=== PATIENT | male | born 1995 | race Caucasian/White ===

== ENCOUNTER 2025-03-30 09:52 | Outpatient (OUT) | payer BC, SELFPAY ==
--- OUTSIDE RECORDS SUMMARY | 2025-03-30 05:31 | XMS_ITS | Continuity of Care Document ---
Author Organization [facility] Address [address] [place] [address] Phone Care Team Providers Care Lacing Presser Name Role Phone Pao Morgan APRN Primary Care Provider Pao Morgan APRN Attending Provider Care Teams Patient Care Team Team Status: Active Member Role/Relationship Status Dates Pao Morgan APRN VITAMIN MANAGER-C Primary Care Provider Active Patient Care Team Team Status: Inactive Member Role/Relationship Status Dates Pao Morgan APRN VITAMIN MANAGER-C Primary Care Provider Active Start: March End: March 30, 2025Pao Morgan APRN VITAMIN MANAGER-CAttending ProviderActive Start: March 30, 2025 End: March 30, 2025 Chief Complaint and Reason for Visit Chief Complaint Admit Date Est Care March 30, 2025 8 :49am Reason for Visit Admit Date Screening for lipid disorders March 302024 8:49am Screening for metabolic disorder March 30, 2025 8:49am Screening, deficiency anemia, iron Octob er 2024 8:49am Wellness examination March 30, 2025 8:49am Allergies, Adverse Reactions, Alerts Allergen Type Severity Reaction Last Updated Verified Status Penicillins Allergy Severe Anaphylaxis March 30, 2025 9:03a m Yes Active Social History Smoking Status Unknown if ever smoked Observation Status Observation Response Date of Response Legal Sex [facility] (finding) [facility] Active Problems Problem Diagnosis/Recorded Date Onset Date Stat Screening, deficiency anemia, iron March 30, 2025 9:25am Unknown Active Wellness examination March 30, 2025 9:21am Unknown Active Screening for metabolic disorder March 30, 2025 9: 25am Unknown Active Screening for lipid disorders March 30, 2025 9:25a m Unknown Active Medications No known medications Vital Signs Vital Reading Result Reference Range Collection Date/Time Height 70 [in_i] March 30, 2025 9:34tqDnoidg822.21 [facility] 9:00amBody Uvshqmyigng42.2 [degF]97.6-99.0[facility] 2024 9:00amHeart Rate78 /tlm92-948 March 30, 2025 9:00amOxygen saturation by Pulse dqserrcg75 %95-100[facility] 2024 9:00amBP Bttooqjv271 mm[Hg]100-140[facility] 2024 9:00amBP Hktzmbwxd72 mm[Hg]60-100[facility] 2024 9:00amBMI (Body Mass Index)50.3 kg/m2 March 30, 2025 9:00am Advance Directives Advance Directive Response Recorded Date/ Time Advance Directives No October 06, 2018 2:07pm Insurance Providers Guarantor Javier Mukherjee [employer] Address [address] [place], [place] [address]Contact Info.Home Phone: Coverage Status Update:2025 Payer Group Member ID Coverage Type Subscriber Relationship to Subscriber Effective Date Expiration Date Dejah MCCLELLAN [id number] A [employer] Id: [id number] [facility] [address] Home Phone: Self[employer] Ad[employer]age Id: [id number] A Run[employer] Id: [id number] [address] [place] [id number] Home Phone: [employer] Unknown Id: [id number] A [employer] Id: [id number] [address] [place] [address] Home Phone: Self Encounters Encounter Location(s) Arrival/Admit Date Discharge/Departure Date Discharge/Departure Disposition Provider(s) Departed Physician/ Provider Office Visit -[facility] March 30, 2025 8:49am March 30, 2025 9:29am Discharged to home care or self care (routine discharge) Pao Morgan APRN CNP Recent Diagnosis Onset Date Admit Date Screening for lipid disorders Unknown O[facility] to[facility] 2024 8:49am Screening for metabolic disorder Unknown March 30, 2025 8:49am Screening, deficiency anemia, iron Unknown March 30, 2025 8:49am Wellness examination Unknown March 8:49am Assessments Diagnosis Onset Date Resolution Status Admit Date Screening for lipid disorders acuteOctober 2024 8:49amScreening for metabolic disorderacuteOctober 2024 8:49amScreening, deficiency anemia, ironacuteOctober 2024 8:49am Wellness examinationacuteOctober 2024 8:49am Plan of Treatment Future Tests Future scheduled test information is unavailable Pending Tests Test Name Ordered Date Scheduled Date Comprehensive Metabolic Panel March 30, 2025 9:24am Future Visits Future appointment information is unavailable Future Procedures Procedure Name Ordered Date Scheduled Date Complete Blood Count Auto Diff March 30 9:24am Lipid PanelOctober 2024 9:24am Future Medications Future medication information is unavailable Patient Instructions Patient instructions are unavailable
[2025-03-30 10:36] LABS: Hematocrit 43.4 % (42.0-54.0); Hemoglobin 14.5 g/dL (14.0-18.0); Immature Granulocytes Abs Auto 0.02 10^3/uL (0.00-0.03); Immature Granulocytes Pct Auto 0.3 % (0.0-0.5); Lymphocytes Absolute Auto 1.6 10^3/uL (1.2-3.8); Mean Corpuscular HGB Conc 33.4 g/dL (29.9-35.2); Mean Corpuscular Hemoglobin 27.9 pg (25.9-34.0); Mean Corpuscular Volume 83.6 fL (80.0-94.0); Platelet Count 283 10^3/uL (150-450); Red Blood Count 5.19 10^6/uL (4.70-6.10); White Blood Count 7.4 10^3/uL (4.0-11.0)
[2025-03-30 10:56] LABS: Alanine Aminotransferase 38 U/L (16-63); Albumin Globulin Ratio 1.2; Albumin Level 3.9 g/dL (3.4-5.0); Alkaline Phosphatase 80 U/L (46-116); Anion Gap 14.2; Aspartate Amino Transferase 24 U/L (15-37); Blood Urea Nitrogen 19.0 mg/dL (7.0-18.0); Calcium 9.3 mg/dL (8.5-10.1); Carbon Dioxide 25.9 mmol/L (21.0-32.0); Chloride 105 mmol/L (98-107); Cholesterol 154 mg/dL (<=200); Estimated GFR (African America >60 (>=60 mL/min/1.73m^2); Estimated GFR (Non-African Ame >60 (>=60 mL/min/1.73m^2); Globulin 3.2 g/dL; Glucose 95 mg/dL (74-106); HDL Cholesterol 35 mg/dL (40-60); Potassium 4.1 mmol/L (3.5-5.1); Sodium 141 mmol/L (136-145); Total Protein 7.1 g/dL (6.4-8.2); Triglycerides 110 mg/dL (<=150); VLDL CHOLESTEROL 22.0 mg/dL
== END 2025-03-30 09:53 | disposition home or self-care (01) ==
LOC: LAB 09:57
PROVIDERS: PCP Nurse Practitioner Family; Visit Provider Nurse Practitioner Family
DX: Z00.00 Encounter for general adult medical examination without abnormal findings (principal); Z13.220 Encounter for screening for lipoid disorders; Z13.228 Encounter for screening for other metabolic disorders; Z13.0 Encounter for screening for diseases of the blood and blood-forming organs and certain disorders involving the immune mechanism
CPT/HCPCS: 36415; 80053; 80061; 85025